=== PATIENT | female | born 1970 | race Caucasian/White ===

== ENCOUNTER → 2019-03-05 08:14 | Outpatient (CLI) | payer BC, SELFPAY ==
[2016-02-28 21:02] VITALS: BMI 28.0
[2019-03-05 09:30] LABS: Absolute Lymphocyte Count 1.98 X10^3/ul (0.83-4.51); Absolute Neutrophil Count 4.9 X10^3/uL (2.0-7.7); Basophil# 0.05 X10^3/uL; Basophil% 0.7 % (0-1); Eosinophil# 0.16 X10^3/uL; Eosinophils% 2.1 % (0-5); Hematocrit 40.3 % (37-47); Hemoglobin 13.4 g/dl (12.0-15.0); Lymphocyte # 1.98 X10^3/ul (4.0); Lymphocyte % 26.3 % (19-41); Mean Corp Hgb Conc 33.3 g/gl (32-36); Mean Corpuscular Hgb 28.5 pg (27.0-32.0); Mean Corpuscular Volume 85.6 fL (81-99); Mean Platelet Vol. 10.6 fl (6.2-12.0); Monocyte# 0.39 X10^3/uL; Monocyte% 5.2 % (0-10); Neutrophil # 4.92 X10^3/uL (2.7-7.7); Neutrophil % 65.2 % (47-70); Platelet Count 278 K/mm3 (150-450); RBC Distribution Width CV 12.9 % (11.6-14.6); RBC Distribution Width SD 40.4 fl (35.1-43.9); Red Blood Count 4.71 M/mm3 (4.2-5.4); White Blood Count 7.5 K/mm3 (4.4-11.0)
[2019-03-05 09:35] LABS: POSITIVE COUNT NO; POSITIVE DIFFERENTIAL NO; POSITIVE MORPHOLOGY NO
[2019-03-05 09:55] LABS: ALB/GLOB Ratio 0.8 RATIO (0.9-2.4); AST(SGOT) 21 U/L (15-37); Alanine Aminotransfer ALT/SGPT 37 U/L (13-56); Albumin, Serum 3.4 g/dL (3.2-5.0); Alkaline Phosphatase 121 U/L (45-117); Anion Gap 5 (5-15); BUN 17 mg/dL (7-18); BUN/Creat Ratio 23.5 RATIO (10-20); Calcium,Total 8.6 mg/dL (8.5-10.1); Chloride 107 mmol/L (98-107); Cholesterol 165 mg/dL (200); Creatinine, Serum 0.72 mg/dL (0.55-1.02); EST Glomerular Filtration Rate 92 mL/min (>60); Est Glom Filt Rate - Afr Amer 111 mL/min (>60); Globulin 4.4 g/dL (2.2-4.2); Glucose 89 mg/dL (74-106); High Density Lipoprotein 50 mg/dL; Potassium 4.1 mmol/L (3.5-5.1); Protein, Total 7.8 g/dL (6.4-8.2); Sodium Level 139 mmol/L (136-145); Triglycerides 88 mg/dL; Very Low Density Lipoprotein 18 mg/dL (5-40)
== END ==
PROVIDERS: Family Provider Family Medicine; PCP Family Medicine; Referring Provider Registered Nurse; Visit Provider Registered Nurse
DX: M79.89 Other specified soft tissue disorders (principal); Z13.220 Encounter for screening for lipoid disorders
CPT/HCPCS: 36415; 80053; 80061; 85025

== ENCOUNTER → 2019-03-19 08:13 | Outpatient (CLI) | payer BC, SELFPAY ==
--- NOTE | 2019-03-19 08:16 | BI_ITS ---
MAMMOGRAPHY - BILATERAL SCREENING 3-D TOMOSYNTHESIS REASON FOR EXAM: Female, 48 years old. Bilateral Screening 3-D tomosynthesis PERTINENT HISTORY: Mother and grandmother with breast cancer.. TECHNIQUE: 2-D mammograms and 3-D Tomosynthesis of the breast (s) were performed. CAD was performed. COMPARISON: None, baseline study. FINDINGS: The breast composition is heterogeneously dense that can obscure small breast masses. Scattered benign calcifications are seen. No dense spiculated masses or suspicious microcalcifications are identified. No architectural distortion is identified. There is no skin thickening or retraction. BI/SCREEN MAMM (CAD) W/ROSSY BILAT IMPRESSION: No mammographic signs of malignancy. Routine yearly mammograms recommended. ASSESSMENT CATEGORY: BIRADS Category 2: Benign. A letter regarding these results will be sent to the patient by the facility within 30 days. FOLLOW UP RECOMMENDATION: Yearly follow up mammogram recommended. (A) Approximately 10% of breast cancers are not detected by mammography. A normal mammogram should not delay biopsy of a clinically suspicious abnormality. Electronically Signed: Iftikhar North MD at 10:00 EDT , Service support ,
== END ==
PROVIDERS: Family Provider Family Medicine; PCP Family Medicine; Referring Provider Family Medicine; Visit Provider Family Medicine
DX: Z12.31 Encounter for screening mammogram for malignant neoplasm of breast (principal); Z80.3 Family history of malignant neoplasm of breast
CPT/HCPCS: 77063; 77067

== ENCOUNTER 2020-05-23 08:40 | Outpatient (RCR) | payer BC, SELFPAY ==
[2016-02-28 21:02] VITALS: BMI 28.0
== END 2020-05-23 09:00 | disposition home or self-care (01) ==
LOC: EMPH 08:40
PROVIDERS: PCP Family Medicine; Visit Provider Family Medicine Geriatric Medicine
DX: Z11.59 Encounter for screening for other viral diseases (principal)
CPT/HCPCS: 87635; U0003

== ENCOUNTER → 2020-06-21 15:39 | Outpatient (CLI) | payer BC, SELFPAY ==
[2016-02-28 21:02] VITALS: BMI 28.0
--- NOTE | 2020-06-21 15:44 | BI_ITS ---
MAMMOGRAPHY - BILATERAL SCREENING REASON FOR EXAM: Female, 49 years old. Routine annual screening examination. PERTINENT HISTORY: Mother with breast cancer. Grandmother with breast cancer. TECHNIQUE: Digital bilateral breast rossy (3D mammographic acquisition) in the CC and MLO projections. 2-D mediolateral oblique (MLO) and craniocaudad (CC) views of both breasts were obtained. CAD: Full Field Digital Mammography with Computer Added Detection was performed. COMPARISON: Comparison is made with prior study dated 03/19/2019. FINDINGS: Breast Composition: There are scattered areas of fibroglandular density. There are no dominant masses or suspicious calcifications. No other significant abnormalities are identified. There has been no significant change since the prior study. BI/SCREEN MAMM (CAD) W/ROSSY BILAT IMPRESSION: Stable bilateral screening mammogram. Yearly follow-up mammogram recommended. (A) ASSESSMENT CATEGORY: BIRADS Category 1: Negative. A letter regarding these results will be sent to the patient by the facility within 30 days. Approximately 10% of breast cancers are not detected by mammography. A normal mammogram should not delay biopsy of a clinically suspicious abnormality. [id number] Electronically Signed: Pierre Gregory, at 9:27 EDT , Service support ,
== END ==
PROVIDERS: PCP Family Medicine; Referring Provider Family Medicine; Visit Provider Family Medicine
DX: Z12.31 Encounter for screening mammogram for malignant neoplasm of breast (principal); Z80.3 Family history of malignant neoplasm of breast
CPT/HCPCS: 77063; 77067

== ENCOUNTER 2020-06-22 08:47 | Outpatient (RCR) | payer BC, SELFPAY ==
[2016-02-28 21:02] VITALS: BMI 28.0
== END 2020-06-24 23:59 ==
LOC: EMPH 08:47
PROVIDERS: PCP Family Medicine; Visit Provider Family Medicine Geriatric Medicine
DX: Z03.818 Encounter for observation for suspected exposure to other biological agents ruled out (principal)
CPT/HCPCS: 87426

== ENCOUNTER 2020-07-19 10:42 | Outpatient (RCR) | payer BC, SELFPAY ==
[2016-02-28 21:02] VITALS: BMI 28.0
== END 2020-07-24 23:59 ==
LOC: EMPH 10:42
PROVIDERS: PCP Family Medicine; Visit Provider Family Medicine Geriatric Medicine
DX: Z03.818 Encounter for observation for suspected exposure to other biological agents ruled out (principal)
CPT/HCPCS: 87426

== ENCOUNTER 2020-08-23 14:41 | Outpatient (RCR) | payer BC, SELFPAY ==
[2016-02-28 21:02] VITALS: BMI 28.0
== END 2020-08-24 23:59 ==
LOC: EMPH 14:41
PROVIDERS: PCP Family Medicine; Referring Provider Family Medicine Geriatric Medicine; Visit Provider Family Medicine Geriatric Medicine
DX: Z03.818 Encounter for observation for suspected exposure to other biological agents ruled out (principal)
CPT/HCPCS: 87426

== ENCOUNTER 2020-09-22 08:35 | Outpatient (RCR) | payer BC, SELFPAY ==
[2016-02-28 21:02] VITALS: BMI 28.0
== END 2020-09-24 23:59 ==
LOC: EMPH 08:35
PROVIDERS: PCP Family Medicine; Referring Provider Family Medicine Geriatric Medicine; Visit Provider Family Medicine Geriatric Medicine
DX: Z03.818 Encounter for observation for suspected exposure to other biological agents ruled out (principal)
CPT/HCPCS: 87426

== ENCOUNTER 2020-10-20 09:51 | Outpatient (RCR) | payer BC, SELFPAY ==
[2016-02-28 21:02] VITALS: BMI 28.0
== END 2020-10-22 23:59 ==
LOC: EMPH 09:51
PROVIDERS: PCP Family Medicine; Referring Provider Family Medicine Geriatric Medicine; Visit Provider Family Medicine Geriatric Medicine
DX: Z03.818 Encounter for observation for suspected exposure to other biological agents ruled out (principal)
CPT/HCPCS: 87426

== ENCOUNTER 2020-10-26 12:51 | Emergency (ER) | payer OTHER, BC, SELFPAY ==
[2020-10-26 12:53] VITALS: BP 154/101; PULSE 85; RESP 17; TEMP 36.4; O2SAT 98; BMI 32.8
[2020-10-26 12:55] VITALS: BP 154/101
--- NOTE | 2020-10-26 13:18 | CT_ITS ---
STUDY: CT BRAIN WITHOUT CONTRAST REASON FOR EXAM: Female, 50 years old. Head injury RADIATION DOSAGE (If Supplied By Facility): CTDIvol = ( 44.99 ) mGy, DLP = ( 812.98 ) mGycm TECHNIQUE: Transaxial CT imaging of the brain was performed without administration of intravenous contrast material. Individualized dose optimization techniques were used for this CT. COMPARISON: Comparison is made with prior study dated 05/13/2013. FINDINGS: Normal soft tissue structures. Normal calvarium. Normal size ventricles and extra-axial spaces for the patient''s age. Normal white matter tracts of the cerebral hemispheres. Normal basal ganglia and thalami. Normal brainstem. Normal cerebellum. There is no intracranial hemorrhage. There are no findings of an acute ischemic infarction. Normal visualized paranasal sinuses. CT/Brain/Head without Contrast IMPRESSION: Normal unenhanced CT scan of the brain. Electronically Signed: Pierre Gregory MD at 13:50 EST , Service support ,
--- NOTE | 2020-10-26 13:30 | ED.VISSUMM ---
- ER Visit Summary Date of Service: 10/26/20 Chief Complaint: Fall History of Present Illness: The patient is a 50 F who presents after a fall that occurred today while at work. Patient states she went to sit on a chair and the chair was moved from underneath her. Patient states she fell backwards. Patient states she hit the back of her head and neck. Patient denies any loss of consciousness. Patient admits to some dizziness after the fall. Patient states this is worse with movement and better with rest. Patient describes her pain is aching. Patient denies any nausea or vomiting. Patient denies any visual changes. Physical Examination: Vital signs are stable. Patient is afebrile. Patient is in no acute distress. Oral mucosa is pink and moist. Neck is supple. There is mild paraspinal tenderness over the upper cervical spine and occipital area. There is no midline tenderness. There is no bony crepitance or step-off. There is no hematoma noted. There are no lacerations or abrasions noted. Trachea is midline. There is no JVD noted. Heart was regular rate and rhythm. Lungs are clear and equal bilaterally. Abdomen is soft. Bowel sounds are normal. There is no tenderness. There is no rebound or guarding noted. Skin is warm dry. Cranial nerves II through XII are intact. There are no focal motor or sensory deficits noted. Extremities are intact. There is no calf tenderness or edema. Test Results: CT scan of the brain was obtained. There is no acute intracranial abnormality noted. This was interpreted by the radiologist and reviewed by myself. Emergency Department Course and Treatment: Patient was given a dose of bupropion here. Patient was instructed to rest in a dark quiet room. Patient was instructed to drink plenty of fluids. Patient was instructed to follow-[facility] primary care [facility]. Patient understood and was agreeable with the plan. All questions were answered. Disposition: Discharge home Impression: 1. Concussion This note was generated with [employer] dictation software. It may contain incorrect words, spelling, and punctuation that were not noted in review of the chart prior to signing ED Disposition - Plan for ED Patient: Disposition: Home or Assisted Living Diagnosis: Concussion Instructions: ED Head Injury (Adult) Referrals: Florentino Espinal MD [Primary Care Provider] - 3-5 Days Corporate,Care [GROUP OF PHYSICIANS] - 3-5 Days
[2020-10-26] MEDS: Ibuprofen 400 MG Tablet 800 MG PO (14:07)
[2020-10-26 14:08] VITALS: BP 121/74; PULSE 63; RESP 15; O2SAT 98
== END 2020-10-26 14:09 | disposition home or self-care (01) ==
PROVIDERS: Emergency Provider Emergency Medicine; PCP Family Medicine
DX: S06.0X0A Concussion without loss of consciousness, initial encounter (principal); W19.XXXA Unspecified fall, initial encounter; Y93.89 Activity, other specified; Y92.9 Unspecified place or not applicable; Y99.0 Civilian activity done for income or pay
CPT/HCPCS: 70450; 99283

== ENCOUNTER 2020-11-13 12:42 | Outpatient (RCR) | payer BC, SELFPAY ==
[2016-02-28 21:02] VITALS: BMI 28.0
== END 2020-11-22 23:59 ==
LOC: EMPH 12:42
PROVIDERS: PCP Family Medicine; Referring Provider Family Medicine Geriatric Medicine; Visit Provider Family Medicine Geriatric Medicine
DX: Z03.818 Encounter for observation for suspected exposure to other biological agents ruled out (principal)
CPT/HCPCS: 87426

== ENCOUNTER 2020-12-22 09:43 | Outpatient (RCR) | payer BC, SELFPAY ==
[2020-11-01 09:09] VITALS: BMI 42.0
== END 2020-12-22 23:59 ==
LOC: EMPH 09:43
PROVIDERS: PCP Family Medicine; Referring Provider Family Medicine Geriatric Medicine; Visit Provider Family Medicine Geriatric Medicine
DX: Z03.818 Encounter for observation for suspected exposure to other biological agents ruled out (principal)
CPT/HCPCS: 87426

== ENCOUNTER 2021-01-12 10:13 | Outpatient (RCR) | payer BC, SELFPAY ==
[2020-11-29 16:05] VITALS: BMI 42.0
== END 2021-01-22 23:59 ==
LOC: EMPH 10:13
PROVIDERS: PCP Family Medicine; Referring Provider Family Medicine Geriatric Medicine; Visit Provider Family Medicine Geriatric Medicine
DX: Z03.818 Encounter for observation for suspected exposure to other biological agents ruled out (principal)
CPT/HCPCS: 87426

== ENCOUNTER 2021-02-14 13:05 | Outpatient (RCR) | payer BC, SELFPAY ==
[2020-11-29 16:05] VITALS: BMI 42.0
== END 2021-02-21 23:59 ==
LOC: EMPH 13:05
PROVIDERS: PCP Family Medicine; Referring Provider Family Medicine Geriatric Medicine; Visit Provider Family Medicine Geriatric Medicine
DX: Z03.818 Encounter for observation for suspected exposure to other biological agents ruled out (principal)
CPT/HCPCS: 87426

== ENCOUNTER 2021-03-23 12:16 | Outpatient (RCR) | payer BC, SELFPAY ==
[2020-11-29 16:05] VITALS: BMI 42.0
== END 2021-03-24 23:59 ==
LOC: EMPH 12:16
PROVIDERS: PCP Family Medicine; Referring Provider Family Medicine Geriatric Medicine; Visit Provider Family Medicine Geriatric Medicine
DX: Z03.818 Encounter for observation for suspected exposure to other biological agents ruled out (principal)
CPT/HCPCS: 87426

== ENCOUNTER 2021-03-30 15:04 | Outpatient (RCR) | payer BC, SELFPAY ==
[2020-11-29 16:05] VITALS: BMI 42.0
== END 2021-04-24 23:59 ==
LOC: EMPH 15:04
PROVIDERS: PCP Family Medicine; Referring Provider Family Medicine Geriatric Medicine; Visit Provider Family Medicine Geriatric Medicine
DX: Z03.818 Encounter for observation for suspected exposure to other biological agents ruled out (principal)
CPT/HCPCS: 87426

== ENCOUNTER 2021-08-30 09:10 | Outpatient (CLI) | payer BC, SELFPAY ==
[2021-08-30 09:40] VITALS: BP 161/108; PULSE 101; RESP 16; TEMP 36.9; O2SAT 99; BMI 31.9
[2021-08-30] MEDS: 0.9% Saline Lock 10 ML Syringe IV (09:41)
[2021-08-30 10:03] VITALS: BP 178/98; PULSE 84; RESP 16; TEMP 36.7; O2SAT 99
[2021-08-30 11:17] VITALS: BP 155/98; PULSE 86; RESP 16; TEMP 36.8; O2SAT 99
== END 2021-08-30 23:59 | disposition home or self-care (01) ==
LOC: MS3OUT 09:13 → MS3 09:13
PROVIDERS: PCP Family Medicine; Referring Provider Nurse Practitioner Adult Health; Visit Provider Nurse Practitioner Adult Health
DX: Z23 Encounter for immunization (principal); U07.1 COVID-19; E66.9 Obesity, unspecified; Z68.31 Body mass index [BMI] 31.0-31.9, adult
CPT/HCPCS: J7050; M0243; A4216; Q0244

== ENCOUNTER 2021-11-05 09:42 | Emergency (ER) | payer BC, SELFPAY ==
[2021-11-05 09:43] VITALS: BP 183/90; PULSE 83; RESP 17; TEMP 36.1; O2SAT 100; BMI 39.0
--- NOTE | 2021-11-05 09:46 | NURSING ---
NO OLD EKGS
--- NOTE | 2021-11-05 10:00 | EDS_ITS ---
HPI History of Present Illness Chief Complaint: Chest Pain Informant: patient Onset/Context/Timing Onset: Yesterday Activity at onset: gradual Timing: Continuous Quality: Positive for Sharp Location: Left Chest and - (Left arm) Worsened By: Nothing Relieved By: Nothing Associated Symptoms: Positive for Dyspnea; Negative for Nausea, Vomiting, Diaphoresis, Cough, Fever, Lightheadedness, Acid Reflux and Palpitations Narrative Narrative: Patient presents with chest pain that began yesterday evening. Patient states the pain is sharp. Patient states the pain is constant. Patient states the pain started in her left arm and progressed into her left chest. Patient states nothing makes it better and nothing makes it worse. Patient does admit to some mild shortness of breath. Patient denies any nausea or vomiting. Patient denies any diaphoresis. Patient denies any fevers or chills. Patient denies any cough. Patient denies any radiation of the pain into her neck or abdomen. CVD Risk Factors: Negative for Hypertension, Diabetes, Hypercholesterolemia, Family History 1' </=55 and Smoking PE Risk Factors: Negative for Recent Travel/Surgery, Recent Immobilization, Prior DVT or PE, Cancer and OCP + Smoking + [facility] Medical History (Updated 11/05/21 @ 14:[address] Chinedu Santo DO) GERD (gastroesophageal reflux disease) Home Medications omeprazole 20 mg PO DAILY 10/26/20 [History Last Taken Unknown] Allergy/AdvReac Type Severity Reaction Status Date / Time Penicillins AdvReac Hives Verified 11/05/21 09:42 Surgical History Hx of cholecystectomy Hx of foot surgery Social History Smoking Status: Never smoker ROS ROS ED Constitutional Constitutional ED: Denies chills or fever(s) Eyes Eyes: Denies blurry vision or change in vision ENT ENT ED: Denies rhinorrhea or sore throat Cardiovascular Cardiovascular: Reports chest pain; Denies palpitations Respiratory/Chest Respiratory/Chest: Reports dyspnea; Denies cough Gastrointestinal Gastrointestinal: Denies abdominal pain, nausea or vomiting Genitourinary Genitourinary ED: Denies dysuria or hematuria Musculoskeletal Musculoskeletal: Reports back pain; Denies neck pain Integumentary Denies abscess or rash Neurologic Neurologic: Denies headache(s) or weakness Allergic/Immunologic Allergic/Immunologic ED: Denies mouth swelling or urticaria EXAM Physical Exam Const Vital Signs: 11/05/21 09:43 11/05/21 10:32 11/05/21 12:06 Temperature 96.9 F L Temperature Source Temporal Pulse Rate 83 69 Respiratory Rate 17 16 Blood Pressure 183/90 H 134/81 H Blood Pressure Mean 121 98 Pulse Ox 100 98 Oxygen Delivery Method Room Air Room Air Room Air Positive well nourished, well developed and obese General Appearance ED: well developed and NAD Nutritional Appearance: obese HEENT normocephalic and atraumatic Eyes PERRL and EOMs intact bilaterally Neck supple and no JVD Chest Wall Chest Narrative: There is reproducible tenderness to the left upper chest wall. There is no bony crepitance or step-off. Resp normal respiratory effort and clear to auscultation bilaterally Effort and Inspection: Negative for respiratory distress Cardio regular rate, regular rhythm and no murmurs GI normal to inspection, nondistended, normoactive bowel sounds, soft to palpation, non-tender and non-distended Extremity normal to inspection General Extremety ED: Negative for edema or tenderness General Extremity: Negative for edema Neuro oriented x3, CN's II-XII intact bilaterally and no sensory deficits noted Sensorium / Orientation: awake and alert Motor Exam: strength 5/5 throughout Psych mental status grossly normal Heart Score History: Slightly/Non-Suspicious ECG: Normal Age: >45 - <65 years Risk Factors: No Risk Factors Troponin: </= Normal Limit Score: 1 MDM MDM MDM Narrative Medical decision making narrative: EKG was obtained. On my interpretation, it showed a normal sinus rhythm with a rate of 76. MS interval, QRS interval, and QTc intervals were all normal. [place] was normal. There are no acute ST or T wave changes. Portable 1 view chest x-ray was obtained. On my interpretation, lung thomas are clear. There is normal cardiac silhouette. Bony thorax is normal. There is no acute process noted. Radiologist also interpreted the x- ray and agrees. CBC and basic metabolic profile were within normal limits. Initial high-sensitivity troponin was normal at 8. 2-hour repeat high- sensitivity troponin was normal at 6. Patient has a HEART score of 1. Patient was advised that this is low risk for acute cardiac event. Patient was instructed to follow-up with her primary care physician in 5 to 7 days. Patient understood and was agreeable with the plan. All questions were answered. Lab Data Labs: Laboratory Results - last 24 hr 11/05/21 11/05/21 11/05/21 10:23 10:23 12:20 WBC 5.8 RBC 4.75 Hgb 13.6 Hct 41.5 MCV 87.4 MCH 28.6 MCHC 32.8 RDW Std Deviation 40.0 RDW Coeff of Gerda 12.6 Plt Count 262 MPV 10.6 Immature Gran % (Auto) 0.700 Neut % (Auto) 55.5 Lymph % (Auto) 32.6 [place] % (Auto) 6.2 Eos % (Auto) 4.1 Baso % (Auto) 0.9 Absolute Neuts (auto) 3.2 Absolute Lymphs (auto) 1.89 Nucleated RBC % 0 Sodium 139 Potassium 4.3 Chloride 107 Carbon Dioxide 29.0 Anion Gap 3 L BUN 15 Creatinine 0.67 Estim Creat Clear Calc 104.98 Est GFR (MDRD) Af Amer 120 Est GFR (MDRD) Non-Af 99 BUN/Creatinine Ratio 22.4 H Glucose 92 Calcium 8.7 Troponin I High Sens 8 6 Radiography Chest X-Ray - ED: 1 View, Read by ED Physician, Read by Radiologist and Normal Diagnostic Testing: Clinical Impression(s) from Imaging Studies Chest X-Ray 11/05/21 10:06 IMPRESSION: Normal x-ray examination of the chest. Electronically Signed: Bj Morales MD at 11:07 EDT Reading Location ID and State: [address] [place] [address] , Service support , EKG Initial EKG: Attestation: I personally reviewed and interpreted this EKG as follows: Interpretation: Sinus Rhythm (76) and No Acute Injury Pattern Discharge Plan Triage Chief Complaint: Chest Pain ED Provider: Chinedu Santo Dx/Rx/DC Orders Clinical Impression: Chest pain Instructions: ED Chest Pain, Uncertain Cause Prescriptions: No Action omeprazole 20 MG capsule,delayed release(DR/EC) 20 mg PO DAILY RF: 0 Primary Care Provider: Florentino Espinal Referrals: Florentino Espinal MD [Primary Care Provider] - Disposition Disposition: Home, Self Care
--- NOTE | 2021-11-05 10:06 | RAD_ITS ---
STUDY: X-RAY CHEST REASON FOR EXAM: Female, 51 years old. chest pain TECHNIQUE: Single AP portable view of the chest. COMPARISON: None. FINDINGS: The lungs are clear and expanded. There is no demonstrated pleural abnormality. Normal size heart. Normal mediastinum and alcira. Normal visualized pulmonary arteries. Normal visualized aortic arch and descending thoracic aorta. Normal visualized thoracic spine. Normal visualized ribs, clavicles, and shoulders. There is no demonstrated abnormality of the visualized soft tissue structures of the upper abdomen. RAD/Chest 1 View (Portable) IMPRESSION: Normal x-ray examination of the chest. Electronically Signed: Bj Morales MD at 11:07 EDT ,
--- NOTE | 2021-11-05 10:06 | EKG12_ITS ---
Test Reason : CP Blood Pressure : / mmHG Vent. Rate : 076 BPM Atrial Rate : 076 BPM P-R Int : 168 ms QRS Dur : 096 ms QT Int : 408 ms P-R-T Axes : 067 -10 028 degrees QTc Int : 459 ms Sinus rhythm with Premature atrial complexes Otherwise normal ECG Confirmed by DIEGO JESUS, NAOMY ([id number]), editor index RANDY PENN ([id number]) on 11/08/2021 9:45:22 AM Referred By: TRINO Confirmed By:NAOMY CORTEZ MD
[2021-11-05] MEDS: Aspirin 81 MG TAB.CHEW 324 MG PO (10:31)
[2021-11-05 10:33] LABS: Absolute Lymphocyte Count 1.89 X10^3/uL (0.83-4.51); Absolute Neutrophil Count 3.2 X10^3/uL (2.0-7.7); Basophil# 0.05 X10^3/uL; Basophil% 0.9 % (0-1); Eosinophil# 0.24 X10^3/uL; Eosinophils% 4.1 % (0-5); Hematocrit 41.5 % (37-47); Hemoglobin 13.6 g/dL (12.0-15.0); Lymphocyte # 1.89 X10^3/ul (0.83-4.51); Lymphocyte % 32.6 % (19-41); Mean Corp Hgb Conc 32.8 g/dL (32-36); Mean Corpuscular Hgb 28.6 pg (27.0-32.0); Mean Corpuscular Volume 87.4 fL (81-99); Mean Platelet Vol. 10.6 fl (6.2-12.0); Monocyte# 0.36 X10^3/uL; Monocyte% 6.2 % (0-10); NRBC Flagged by Analyzer 0 % (0-5); Neutrophil # 3.22 X10^3/uL (2.7-7.7); Neutrophil % 55.5 % (47-70); Platelet Count 262 K/mm3 (150-450); RBC Distribution Width CV 12.6 % (11.6-14.6); Red Blood Count 4.75 M/mm3 (4.2-5.4); White Blood Count 5.8 K/mm3 (4.4-11.0)
[2021-11-05 10:52] LABS: Anion Gap 3 (5-15); BUN 15 mg/dL (7-18); BUN/Creat Ratio 22.4 RATIO (10-20); Calcium,Total 8.7 mg/dL (8.5-10.1); Chloride 107 mmol/L (98-107); Creatinine, Serum 0.67 mg/dL (0.55-1.02); EST Glomerular Filtration Rate 99 mL/min (>60); Est Glom Filt Rate - Afr Amer 120 mL/min (>60); Estimated Creatinine Clearance 104.98 ml/min; Glucose 92 mg/dL (74-106); Potassium 4.3 mmol/L (3.5-5.1); Sodium Level 139 mmol/L (136-145); Troponin-I HS 8 pg/mL (3.0-54.0)
[2021-11-05 12:06] VITALS: BP 134/81; PULSE 69; RESP 16; O2SAT 98
[2021-11-05 12:48] LABS: Troponin-I HS 6 pg/mL (3.0-54.0)
[2021-11-05 14:27] VITALS: BP 145/84; PULSE 74; RESP 16; O2SAT 100
== END 2021-11-05 14:28 | disposition home or self-care (01) ==
PROVIDERS: Emergency Provider Emergency Medicine; PCP Family Medicine; Visit Provider Emergency Medicine
DX: R07.9 Chest pain, unspecified (principal); K21.9 Gastro-esophageal reflux disease without esophagitis; E66.9 Obesity, unspecified; Z68.39 Body mass index [BMI] 39.0-39.9, adult; Z79.899 Other long term (current) drug therapy
CPT/HCPCS: 71045; 80048; 84484; 85025; 93005; 99285; A4216

== ENCOUNTER → 2023-01-23 | Outpatient (CLI) | payer OTHER, SELFPAY ==
--- NOTE | 2023-01-23 12:51 | RAD_ITS ---
STUDY: X-RAY - RIGHT KNEE REASON FOR EXAM: Female, 52 years old. Right knee pain. TECHNIQUE: 4 view(s) of the knee. COMPARISON: None. FINDINGS: Superior patellar spur. Mild medial compartmental arthrosis. Normal lateral compartment. Slight lateral tilt of the patella with mild arthrosis of the patellofemoral compartment. Normal soft tissues. 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 Electronically Signed: Chato Krause MD at 15:55 EDT ,
--- NOTE | 2023-01-23 13:10 | RAD_ITS ---
STUDY: X-RAY - LEFT KNEE REASON FOR EXAM: Female, 52 years old. Left knee pain and swelling. TECHNIQUE: 4 view(s) of the knee. COMPARISON: Comparison is made with prior study dated January 23, 2023. FINDINGS: Normal visualized distal femur. Normal visualized proximal tibia and fibula. Normal proximal tibiofibular articulation. Normal medial femorotibial compartment. Normal lateral femorotibial compartment. There is mild degenerative arthrosis of the patellofemoral articulation. The soft tissue structures are unremarkable. RAD/Knee 4 or More Views IMPRESSION: Degenerative arthrosis. Electronically Signed: Pierre Gregory MD at 14:37 EDT ,
== END | disposition home or self-care (01) ==
LOC: RAD 12:45
PROVIDERS: PCP Family Medicine; Referring Provider Orthopaedic Surgery; Visit Provider Orthopaedic Surgery
DX: M25.561 Pain in right knee (principal); M25.562 Pain in left knee
CPT/HCPCS: 73564

== ENCOUNTER → 2024-03-05 | Outpatient (CLI) | payer OTHER, SELFPAY ==
--- NOTE | 2024-03-05 18:00 | RAD_ITS ---
INDICATION: pain -- PAIN EXAMINATION/TECHNIQUE: X-RAY - LEFT XR Knee Complete 4 Views or More COMPARISON: 01/23/2023 knee radiographs. FINDINGS: 4 views of the left knee. BONES: Normal anatomic alignment without evidence of fracture or subluxation. No concerning bony lesion or abnormal sclerosis to suggest lesion. JOINTS: No significant degenerative change. SOFT TISSUES: Mild patellofemoral osteophyte formation. RAD/Knee 4 or More Views IMPRESSION: No acute osseous abnormality of the left knee. Electronically Signed: Raz Torres MD at 7:01 EDT ,
== END | disposition home or self-care (01) ==
PROVIDERS: PCP Family Medicine; Visit Provider Orthopaedic Surgery
DX: M25.562 Pain in left knee (principal)
CPT/HCPCS: 73564